=== PATIENT | female | born 1965 | race Caucasian/White ===

== ENCOUNTER 2017-01-12 09:45 | Emergency (ER) | payer OTHER ==
[~2017-01-12] VITALS: Ht 162.6 cm; Wt 59.1 kg
[2017-01-12 09:51] VITALS: TEMP 36.6; Ht 162.6 cm; Wt 59.1 kg
[2017-01-12] MEDS ORDERED: ASPIRIN 81 MG CHEW PO STA (10:28)
--- NOTE | 2017-01-12 10:45 | EMERGENCY ROOM VISIT NOTE ---
History Report prepared by Aniya: Chris Davila Under the Supervision of: Dr. Jose Luis Bledsoe M.D. First contact with patient: 10:09 Chief Complaint: CHEST PAIN Stated Complaint: CHEST PAIN Nursing Triage Summary: pt reports developed L side cp denies radiation or sob started 1 day ago History of Present Illness The patient is a 51 year old female who presents to the Emergency Room with complaints of intermittent mild chest pain that started last night. She describes her chest pain as a "twinge" and a 4/10 in severity. She reports that she was bitten by six ticks and was experiencing chest pains and and tingling in her hands prompting her to visit her doctor. The patient states that her EKG showed irregularity and she is scheduled for a stress test tomorrow. 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 She reports that she is a long time smoker and smokes one pack per day. The patient states that her father from a heart attack and pneumonia at age 51. The patient denies any due to menopause, medications, and diabetes. Source of History: patient Onset: last night Position: chest Symptom Intensity: 4/10 Quality: other (twinge) Timing: intermittent Review of Systems See HPI for pertinent positives & negatives. A total of 10 systems reviewed and were otherwise negative. Past Medical & Surgical Medical Problems: (1) Anxiety (2) Heart disease Family History FHx: gallbladder disease Social History Smoking Status: Current Every Day Smoker Alcohol Use: occasionally Marital Status: Housing Status: lives with significant other Occupation Status: employed Current/Historical Medications No Active Prescriptions or Reported Meds Allergies Coded Allergies: No Known Allergies (Verified , 01/12/17) Physical Exam Vital Signs Date Time Temp Pulse Resp B/P (MAP) Pulse Ox O2 Delivery O2 Flow Rate FiO2 01/12/17 12:39 48 16 117/78 99 01/12/17 12:20 49 01/12/17 11:36 51 16 118/66 98 01/12/17 11:36 98 Room Air 01/12/17 11:36 98 Room Air 01/12/17 09:51 36.6 59 18 148/80 100 Room Air Physical Exam GENERAL: Patient is a healthy-appearing well-nourished HEAD: Normocephalic atraumatic EYES: Ocular movements intact pupils equal and react to light OROPHARYNX mucous membranes are moist no exudates present no erythema or edema present NECK: Supple no nuchal rigidity CHEST: Good equal expansion LUNGS: Clear and equal to auscultation CARDIAC: Normal S1 and S2 ABDOMEN: Soft nontender no guarding BACK: No CVA tenderness EXTREMITIES: No pain upon palpation normal muscle strength in all groups no clubbing cyanosis or edema NEURO: Patient is following commands and answering questions appropriately. Alert and oriented x3 Cranial Nerves 2-12 grossly intact Medical Decision & Procedures ER Provider Diagnostic Interpretation: Radiology results as stated below per my review and radiologist interpretation: CHEST ONE VIEW PORTABLE CLINICAL HISTORY: CHEST PAIN dyspnea COMPARISON STUDY: 05/10/2014 FINDINGS: Lungs are considered clear. No evidence for cardiac enlargement. Diaphragms are smooth. IMPRESSION: No acute process. The lungs are clear. Electronically signed by: Bebeto Unger M.D. 01/12/2017 10:53 AM Dictated Date/Time: 01/12/2017 10:[address] NON[address]AST CT DOSE: 537.48 mGy.cm HISTORY: Pt c/o bump to head TECHNIQUE: Multiaxial CT images of the head were performed without the use of intravenous contrast. Automated exposure control was utilized for this study. Comparison: Head CT 10/13/2011. Findings: The paranasal sinuses and mastoid air cells are clear. The calvarium and skull base are intact. The ventricles and sulci are within normal limits. There is no mass, hematoma, midline shift, or acute infarct. Impression: No acute intracranial abnormality. Electronically signed by: David Barth M.D. 01/12/2017 11:24 AM Dictated Date/Time: 01/12/2017 11:16 AM Laboratory Results 01/12/17 10:05 Red Blood Count 5.06, Mean Corpuscular Volume 88.9, Mean Corpuscular Hemoglobin 30.0, Mean Corpuscular Hemoglobin Concent 33.8, Mean Platelet Volume 9.4, Neutrophils (%) (Auto) 65.4, Lymphocytes (%) (Auto) 24.7, Monocytes (%) (Auto) 7.2, Eosinophils (%) (Auto) 1.4, Basophils (%) (Auto) 0.9, Neutrophils # (Auto) 5.02, Lymphocytes # (Auto) 1.90, Monocytes # (Auto) 0.55, Eosinophils # (Auto) 0.11, Basophils # (Auto) 0.07 01/12/17 10:05 Test 01/12/17 10:05 01/12/17 10:47 White Blood Count 7.68 K/uL (4.8-10.8) Red Blood Count 5.06 M/uL (4.2-5.4) Hemoglobin 15.2 g/dL (12.0-16.0) Hematocrit 45.0 % (37-47) Mean Corpuscular Volume 88.9 fL (80-100) Mean Corpuscular Hemoglobin 30.0 pg (25-34) Mean Corpuscular Hemoglobin Concent 33.8 g/dl (32-36) Platelet Count 274 K/uL (130-400) Mean Platelet Volume 9.4 fL (7.4-10.4) Neutrophils (%) (Auto) 65.4 % Lymphocytes (%) (Auto) 24.7 % Monocytes (%) (Auto) 7.2 % Eosinophils (%) (Auto) 1.4 % Basophils (%) (Auto) 0.9 % Neutrophils # (Auto) 5.02 K/uL (1.4-6.5) Lymphocytes # (Auto) 1.90 K/uL (1.2-3.4) Monocytes # (Auto) 0.55 K/uL (0.11-0.59) Eosinophils # (Auto) 0.11 K/uL (0-0.5) Basophils # (Auto) 0.07 K/uL (0-0.2) RDW Standard Deviation 42.5 fL (36.4-46.3) RDW Coefficient of Variation 13.0 % (11.5-14.5) Immature Granulocyte % (Auto) 0.4 % Immature Granulocyte # (Auto) 0.03 K/uL (0.00-0.02) D-Dimer < 190 ug/L FEU (0-500) Est Creatinine Clear Calc Drug Dose 70.1 ml/min Estimated GFR () 96.0 Estimated GFR (Non- 82.9 BUN/Creatinine Ratio 10.0 (10-20) Calcium Level 8.9 mg/dl (8.5-10.1) Total Bilirubin 0.4 mg/dl (0.2-1) Direct Bilirubin 0.1 mg/dl (0-0.2) Aspartate Amino Transf (AST/SGOT) 39 U/L (15-37) Alanine Aminotransferase (ALT/SGPT) 51 U/L (12-78) Alkaline Phosphatase 100 U/L (45-117) Total Creatine Kinase 199 U/L (26-192) Creatine Kinase MB 2.6 ng/ml (0.5-3.6) Creatine Kinase MB Ratio 1.3 (0-3.0) Troponin I < 0.015 ng/ml (0-0.045) Total Protein 8.0 gm/dl (6.4-8.2) Albumin 4.2 gm/dl (3.4-5.0) Lipase 195 U/L (73-393) Lyme Disease IgG Antibody NEG (NEG) Lyme Disease IgM Antibody NEG (NEG) Bedside Hemoglobin 13.9 g/dl (12.0-16.0) Bedside Hematocrit 41 % (37-47) Bedside Sodium 140 mEq/L (135-144) Bedside Potassium 4.1 mEq/L (3.3-5.0) Bedside Chloride 103 mEq/L (101-112) Bedside Total CO2 25 mEq/l (24-31) Anion Gap 17.0 mmol/L (16-25) Bedside Blood Urea Nitrogen 7 mg/dl (7-18) Bedside Creatinine 0.8 mg/dl (0.6-1.3) Bedside Glucose (other) 99 mg/dl (70-99) Bedside Ionized Calcium (Jordy) 1.17 mmol/l (1.12-1.32) Labs reviewed by ED physician. Medications Administered Medications (Trade) Dose Ordered Sig/Becka Route Start Time Stop Time Status Last Admin Dose Admin Aspirin (Aspirin Chew) 324 mg NOW STAT PO 01/12/17 10:28 01/12/17 10:30 DC 01/12/17 10:58 324 MG ECG Indication: chest pain Rate (beats per minute): 60 Rhythm: normal sinus Findings: no acute ischemic change, no ectopy Change: Repeat EKG shows Normal sinus with a rate of 46. There is no acute ischemic change or ectopy. ED Course 1020: Past medical records reviewed. The patient was evaluated in room B10. A complete history and physical examination was performed. 1028: Aspirin 324 mg PO. 1138: Medication Reconciliation: I attest that I have personally reviewed the patient's current medication list Blood Pressure Screening: Patient was found to have normal blood pressure on screening and does not require follow up. 1140: Upon reexamination the patient is doing well. I discussed results and treatment plan with the patient. She verbalizes agreement and understanding. The patient is ready for discharge. Medical Decision The differential Diagnosis includes but is not limited to: Differential diagnosis: Etiologies such as cardiac ischemia, aortic dissection, pulmonary embolism, pneumonia, pneumothorax, musculoskeletal, infections, pericarditis, myocarditis , esophageal rupture, gastrointestinal, as well as others were entertained. This is a 51-year-old female who presents emergency department complaining of chest pain. The patient's chest pain has been ongoing for the past several weeks and as such I feel that if this were cardiac ischemia the patient's troponin would be elevated. It is not. In addition the patient has a normal EKG normal CK-MB fractions. She is also complaining of palpitations and is having PVCs on the monitor. She has a normal d-dimer she also has a normal Lyme test. Based on these findings I feel that the patient can be safely discharged home as she has a follow-up stress test tomorrow. Patient was in agreement with the treatment plan. Impression Primary Impression: Chest pain Scribe Attestation The scribe's documentation has been prepared under my direction and personally reviewed by me in its entirety. I confirm that the note above accurately reflects all work, treatment, procedures, and medical decision making performed by me. Departure Information Dispostion Home / Self-Care Prescriptions No Active Prescriptions or Reported Meds Referrals No Doctor, Assigned (PCP) Forms HOME CARE DOCUMENTATION FORM, IMPORTANT VISIT INFORMATION Patient Instructions My [facility] Additional Instructions Keep appointment tomorrow. You were found to have an elevated blood pressure today (>120 sytolic or >90 diastolic). This corrected over time. Per medicare guidelines, you need to follow up with this blood pressure screening with your Primary Care Physician ( PCP). For a new PCP call [phone]. You have been examined and treated today on an emergency basis only. This is not a substitute for, or an effort to provide, complete comprehensive medical care. It is impossible to recognize and treat all injuries or illnesses in a single emergency department visit. It is therefore important that you follow up closely with your PCP. Call as soon as possible for an appointment. Thank you for your time and consideration. I look forward to speaking with you again soon. Please don't hesitate to call us if you have any questions. Problem Qualifiers Primary Impression: Chest pain Chest pain type: unspecified Qualified Codes: R07.9 - Chest pain, unspecified
[2017-01-12 10:49] LABS: BASO % 0.9 %; BASO ABS # 0.07 K/uL (0-0.2); COMPLETE YES; EOS % 1.4 %; IG% 0.4 %; LYMPH % 24.7 %; MEAN CELL VOLUME 88.9 fL (80-100); MEAN CORPUSCULAR HGB CONC 33.8 g/dl (32-36); MEAN PLATELET VOLUME 9.4 fL (7.4-10.4); MONO % 7.2 %; NEUT % 65.4 %; PLATELET COUNT 274 K/uL (130-400); RED BLOOD COUNT 5.06 M/uL (4.2-5.4); WHITE BLOOD COUNT 7.68 K/uL (4.8-10.8)
--- NOTE | 2017-01-12 10:54 | DIAGNOSTIC IMAGING REPORT ---
CHEST ONE VIEW PORTABLE CLINICAL HISTORY: CHEST PAIN dyspnea COMPARISON STUDY: 05/10/2014 FINDINGS: Lungs are considered clear. No evidence for cardiac enlargement. Diaphragms are smooth. IMPRESSION: No acute process. The lungs are clear. Electronically signed by: Bebeto Unger M.D. 01/12/2017 10:53 AM Dictated Date/Time: 01/12/2017 10:52 AM
[2017-01-12 10:58] LABS: ALT/SGPT 51 U/L (12-78); AST/SGOT 39 U/L (15-37); BLOOD UREA NITROGEN 8 mg/dl (7-18); CALCIUM 8.9 mg/dl (8.5-10.1); CARBON DIOXIDE 27 mmol/L (21-32); CHLORIDE 106 mmol/L (98-107); CREATININE 0.82 mg/dl (0.60-1.20); GLUCOSE 99 mg/dl (70-99); POTASSIUM 3.8 mmol/L (3.5-5.1); SODIUM 141 mmol/L (136-145)
[2017-01-12 11:03] LABS: ALKALINE PHOSPHATASE 100 U/L (45-117); CKMB/CK RATIO 1.3 (0-3.0)
--- NOTE | 2017-01-12 11:26 | DIAGNOSTIC IMAGING REPORT ---
HEAD CT NONCONTRAST CT DOSE: 537.48 mGy.cm HISTORY: Pt c/o bump to head TECHNIQUE: Multiaxial CT images of the head were performed without the use of intravenous contrast. Automated exposure control was utilized for this study. Comparison: Head CT 10/13/2011. Findings: The paranasal sinuses and mastoid air cells are clear. The calvarium and skull base are intact. The ventricles and sulci are within normal limits. There is no mass, hematoma, midline shift, or acute infarct. Impression: No acute intracranial abnormality. Electronically signed by: David Barth M.D. 01/12/2017 11:24 AM Dictated Date/Time: 01/12/2017 11:16 AM
[2017-01-12 11:27] LABS: LYME DISEASE AB IGG NEG (NEG)
[2017-01-12 11:28] LABS: LYME DISEASE AB IGM NEG (NEG)
[2017-01-12 11:36] VITALS: O2SAT 98
[2017-01-12 12:21] LABS: ISTAT CREATININE 0.8 mg/dl (0.6-1.3); ISTAT HEMOGLOBIN 13.9 g/dl (12.0-16.0); ISTAT IONIZED CALCIUM 1.17 mmol/l (1.12-1.32)
[2017-01-12 12:39] VITALS: BP 117/78; PULSE 48; O2SAT 99
== END 2017-01-12 12:39 | disposition home or self-care (01) ==
LOC: C.EDB 09:46
DX: R07.9 Chest pain, unspecified (principal); R00.2 Palpitations; F41.9 Anxiety disorder, unspecified; I51.9 Heart disease, unspecified; F17.200 Nicotine dependence, unspecified, uncomplicated; Z83.79 Family history of other diseases of the digestive system